=== PATIENT | male | born 1930 | race Caucasian/White ===

== ENCOUNTER → 2021-03-20 | Outpatient (CLI) | payer MEDICARE, OTHER ==
[~2021-03-20] MED LIST: ASCO500 PO; CHLO4 PO; CHOL10002 PO; DOXY100T53 PO; Fergon240 M1 PO; Ferrous Sulfat324 MG PO; Hydrochloroth12.5 MG PO; LEVSOD125 PO; METO50ER PO; MULTI VITAMIN1 EACH; PERINDOPRIL ERBU8 MG PO; Super B Comple150 MG; Triamcinolone A15 GM TOP; XARELTO10 MG; XARELTO15 MG PO
== END ==
LOC: LAB SHORT 11:08 → LAB 11:08
DX: C44.519 Basal cell carcinoma of skin of other part of trunk (principal); L57.0 Actinic keratosis
CPT/HCPCS: 88305

== ENCOUNTER → 2022-04-02 | Outpatient (CLI) | payer MEDICARE, OTHER | END | disposition home or self-care (01) | LOC: LAB SHORT 15:07 | DX: L57.0 Actinic keratosis (principal); L90.5 Scar conditions and fibrosis of skin; B37.2 Candidiasis of skin and nail; R23.4 Changes in skin texture | CPT/HCPCS: 88305 ==